=== PATIENT | female | born 1985 | race Caucasian/White ===

== ENCOUNTER 2018-05-26 15:55 | Emergency (ER) | payer MEDICAID ==
[2018-05-26 16:10] VITALS: BP 114/65
[2018-05-26 16:40] LABS: Basophils # (Auto) 0.1 K/mm3 (0.0-0.1); Basophils % (Auto) 0.5 % (0.0-1.8); Eosinophils # (Auto) 0.1 K/mm3 (0.0-0.4); Eosinophils % (Auto) 0.8 % (0.0-4.3); Hematocrit 39.6 % (30.3-42.9); Lymphocytes % (Auto) 19.9 % (13.4-35.0); Mean Corpuscular HGB Conc 36 % (30-34); Mean Corpuscular Volume 91 fl (79-97); Monocytes # (Auto) 0.6 K/mm3 (0.0-0.8); Platelet Count 291 K/mm3 (140-440); Red Blood Count 4.34 M/mm3 (3.65-5.03); Red Cell Distribution Width 13.8 % (13.2-15.2)
[2018-05-26 17:40] LABS: Bilirubin,Urine NEG (Negative); Blood,Urine LG (Negative); Color,Urine Yellow (Yellow); Urobilinogen,Urine < 2.0 mg/dL (<2.0)
--- NOTE | 2018-05-26 20:16 | Emergency Department Report ---
ED HPI - General Chief complaint: Vaginal Bleeding Stated complaint: PREG/VAGINAL BLEEDING Source: patient Mode of arrival: Ambulatory Limitations: No Limitations - History of Present Illness Initial comments: This is a 33-year-old female who presents with vaginal bleeding dorm . Patient reports symptoms started a few minutes ago. Her last menstrual period was 03/23/2018, A0. She reports an episode of urinary urgency. Patient states when she got to the restroom she could not hold her urine and looked in the toilet and it was bright red blood. She denies passing clots. Her first OB appointment is scheduled for next Tuesday. She continues to have the sensation to have a bowel movement. She also reports some pelvic pressure and low back pain. She denies frequency, dysuria, chest pain, shortness of breath, or lightheadedness. MD Complaint: vaginal bleeding -: This afternoon Radiation: none Severity scale (0 -10): 0 Consistency: intermittent Improves with: none Worsens with: none Associated symptoms: denies other symptoms Vaginal bleeding: heavy :: Yes Number of weeks : 7 OB History - Current : no complications OB History - Previous Pregnancies: no complications Last menstrual period: 03/23/18 Pre-samson care: none - Related Data : 3 Para: 2 Ab: 0 Previous Rx's Medication Instructions Recorded Last Taken Type 21/Iron Fu/Folic Acid 1 each PO DAILY #30 tablet 05/26/18 Unknown Rx [ Complete Caplet] Allergies Allergy/AdvReac Type Severity Reaction Status Date / Time No Known Allergies Allergy Unverified 05/26/18 16:07 ED Review of Systems ROS: Stated complaint: PREG/VAGINAL BLEEDING Other details as noted in HPI Constitutional: denies: chills, fever Respiratory: denies: cough, shortness of breath, wheezing Cardiovascular: denies: chest pain, palpitations Gastrointestinal: denies: abdominal pain, nausea, diarrhea Genitourinary: as per HPI, other (vaginal bleed and/or ) Musculoskeletal: denies: back pain, joint swelling, arthralgia Neurological: denies: headache, weakness, paresthesias Psychiatric: denies: anxiety, depression ED Past Medical Hx - Past Medical History Previous Medical History?: No - Surgical History Past Surgical History?: No - Social History Smoking Status: Never Smoker Substance Use Type: None - Medications Home Medications: Home Medications Medication Instructions Recorded Confirmed Last Taken Type 21/Iron Fu/Folic Acid 1 each PO DAILY #30 tablet 05/26/18 Unknown Rx [ Complete Caplet] ED Physical Exam - General Limitations: No Limitations General appearance: alert, in no apparent distress - Respiratory Respiratory exam: Present: normal lung sounds bilaterally. Absent: respiratory distress - Cardiovascular Cardiovascular Exam: Present: regular rate, normal rhythm. Absent: systolic murmur, diastolic murmur, rubs, gallop - GI/Abdominal GI/Abdominal exam: Present: soft, normal bowel sounds. Absent: distended, tenderness, guarding, rebound, rigid - Back Exam Back exam: Present: full ROM. Absent: CVA tenderness (R), CVA tenderness (L) - Neurological Exam Neurological exam: Present: alert, oriented X3, normal gait - Psychiatric Psychiatric exam: Present: normal affect, normal mood - Skin Skin exam: Present: warm, dry, intact, normal color. Absent: rash ED Course Vital Signs 05/26/18 16:08 Temperature 97.9 F Pulse Rate 82 Respiratory 18 Rate Blood Pressure 114/65 O2 Sat by Pulse 98 Oximetry ED Medical Decision Making - Lab Data Result diagrams: 05/26/18 16:16 Lab Results 05/26/18 05/26/18 05/26/18 Range/Units 16:16 16:16 16:20 WBC 10.0 (4.5-11.0) K/mm3 RBC 4.34 (3.65-5.03) M/mm3 Hgb 14.0 (10.1-14.3) gm/dl Hct 39.6 (30.3-42.9) % MCV 91 (79-97) fl MCH 32 (28-32) pg MCHC 36 H (30-34) % RDW 13.8 (13.2-15.2) % Plt Count 291 (140-440) K/mm3 Lymph % (Auto) 19.9 (13.4-35.0) % [place] % (Auto) 6.0 (0.0-7.3) % Eos % (Auto) 0.8 (0.0-4.3) % Baso % (Auto) 0.5 (0.0-1.8) % Lymph # 2.0 (1.2-5.4) K/mm3 [place] # 0.6 (0.0-0.8) K/mm3 Eos # 0.1 (0.0-0.4) K/mm3 Baso # 0.1 (0.0-0.1) K/mm3 Seg Neutrophils % 72.8 H (40.0-70.0) % Seg Neutrophils # 7.3 (1.8-7.7) K/mm3 HCG, Quant [id number] H (0-4) mIU/mL Urine Color (Yellow) Urine Turbidity (Clear) Urine pH (5.0-7.0) Ur Specific [place] (1.003-1.030) Urine Protein (Negative) mg/dL Urine Glucose (UA) (Negative) mg/dL Urine Ketones (Negative) mg/dL Urine Blood (Negative) Urine Nitrite (Negative) Urine Bilirubin (Negative) Urine Urobilinogen (<2.0) mg/dL Ur Leukocyte Esterase (Negative) Urine WBC (Auto) (0.0-6.0) /HPF Urine RBC (Auto) (0.0-6.0) /HPF U Epithel Cells (Auto) (0-13.0) /HPF Blood Type O POSITIVE Antibody Screen Negative 05/26/18 Range/Units 17:14 WBC (4.5-11.0) K/mm3 RBC (3.65-5.03) M/mm3 Hgb (10.1-14.3) gm/dl Hct (30.3-42.9) % MCV (79-97) fl MCH (28-32) pg MCHC (30-34) % RDW (13.2-15.2) % Plt Count (140-440) K/mm3 Lymph % (Auto) (13.4-35.0) % [place] % (Auto) (0.0-7.3) % Eos % (Auto) (0.0-4.3) % Baso % (Auto) (0.0-1.8) % Lymph # (1.2-5.4) K/mm3 [place] # (0.0-0.8) K/mm3 Eos # (0.0-0.4) K/mm3 Baso # (0.0-0.1) K/mm3 Seg Neutrophils % (40.0-70.0) % Seg Neutrophils # (1.8-7.7) K/mm3 HCG, Quant (0-4) mIU/mL Urine Color Yellow (Yellow) Urine Turbidity Clear (Clear) Urine pH 7.0 (5.0-7.0) Ur Specific [place] 1.010 (1.003-1.030) Urine Protein 30 mg/dl (Negative) mg/dL Urine Glucose (UA) Neg (Negative) mg/dL Urine Ketones Neg (Negative) mg/dL Urine Blood Lg (Negative) Urine Nitrite Neg (Negative) Urine Bilirubin Neg (Negative) Urine Urobilinogen < 2.0 (<2.0) mg/dL Ur Leukocyte Esterase Neg (Negative) Urine WBC (Auto) 11.0 H (0.0-6.0) /HPF Urine RBC (Auto) 78.0 (0.0-6.0) /HPF U Epithel Cells (Auto) < 1.0 (0-13.0) /HPF Blood Type Antibody Screen - Radiology Data Radiology results: report reviewed FINAL REPORT EXAM: US OB lt; = 14 WEEKS FETUS HISTORY: vaginal bleeding, 7 weeks gestation TECHNIQUE: Ultrasound obstetrical transabdominal PRIORS: None. FINDINGS: There is gestational sac within the uterus. There is a pole identified with crown-rump length of 2.58 centimeters corresponding to estimated gestational age of 9 weeks 2 days. A yolk sac is Estimated date of delivery by today's ultrasound is December 27, 2018 cardiac activity present with heart rate of 178 beats per minute There is hypoechoic focus adjacent to the uterus most consistent with a moderate subchorionic hemorrhage The right ovary is 2.4 x 1.5 x 1.4 centimeters Left ovary is 3.4 x 1.7 x 2.5 centimeters no free fluid identified in the pelvis Identified. IMPRESSION: Single live intrauterine gestation estimated at 9 weeks 2 days Moderate subchorionic hemorrhage - Medical Decision Making This is a 33 y.o. female presents with vaginal bleeding during that started today. Patient was examined by me. Vitals are normal and patient is in no acute distress. Obtained a labs and OB ultrasound. Quant [id number] all other labs unremarkable. Single live intrauterine gestation estimated at 9 weeks 2 days Moderate subchorionic hemorrhage. Start bedrest. Patient instructed to have repeat hCG quant in 48 hours with [facility] or in ER to r/o ectopic . Start complete. Patient discharged home in stable condition. Critical care attestation.: If time is entered above; I have spent that time in minutes in the direct care of this critically ill patient, excluding procedure time. ED Disposition Clinical Impression: Vaginal bleeding affecting early , Threatened Subchorionic hemorrhage in first trimester Qualifiers: Fetus number: single or unspecified fetus Qualified Code(s): O41.8X10 - Other specified disorders of amniotic fluid and membranes, first trimester, not applicable or unspecified; O46.8X1 - Other antepartum hemorrhage, first trim shima Disposition: TO HOME OR SELFCARE Is pt being admited?: No Does the pt Need Aspirin: No Condition: Stable Instructions: Threatened Miscarriage (ED) Additional Instructions: Have repeat hCG quant labs in 48 hours with [facility] or ER. Your hCG quantitative on this visit was [id number]. Remain on bed rest. Follow up with [facility] in 24-48 hours. Return to ER if increased vaginal bleeding, abdominal pain, and low back pain. Prescriptions: 21/Iron Fu/Folic Acid [ Complete Caplet] 1 each PO DAILY #30 tablet Referrals: DENISSE ROBERT MD [Primary Care Provider] - 3-5 Days [facility] [Provider Group] - 3-5 Days [facility] [Provider Group] - 3-5 Days [facility] [Provider Group] - 3-5 Days Time of Disposition: 22:14
--- NOTE | 2018-05-26 22:07 | Ultrasound Report ---
FINAL REPORT EXAM: US OB <= 14 WEEKS FETUS HISTORY: vaginal bleeding, 7 weeks gestation TECHNIQUE: Ultrasound obstetrical transabdominal PRIORS: None. FINDINGS: There is gestational sac within the uterus. There is a pole identified with crown-rump length o f 2.58 centimeters corresponding to estimated gestational age of 9 weeks 2 days. A yolk sac is Estimated date of delivery by today's ultrasound is December 27, 2018 cardiac activity present with heart rate of 178 beats per minute There is hypoechoic focus adjacent to the uterus most consistent with a moderate subchorionic hemorrh age The right ovary is 2.4 x 1.5 x 1.4 centimeters Left ovary is 3.4 x 1.7 x 2.5 centimeters no free fluid identified in the pelvis Identified. IMPRESSION: Single live intrauterine gestation estimated at 9 weeks 2 days Moderate subchorionic hemorrhage
== END 2018-05-26 22:30 | disposition home or self-care (01) ==
LOC: ED 15:55
DX: O20.0 Threatened abortion (principal); O41.8X10 Other specified disorders of amniotic fluid and membranes, first trimester, not applicable or unspecified; O46.91 Antepartum hemorrhage, unspecified, first trimester; Z3A.01 Less than 8 weeks gestation of pregnancy
CPT/HCPCS: 36415; 76801; 81001; 84702; 85025; 86850; 86900; 86901; 99284